=== PATIENT | male | born 1970 | race Two or more races ===

== ENCOUNTER 2017-10-20 19:40 | Emergency (ER) | payer OTHER ==
[~2017-10-20] VITALS: Ht 172.7 cm; Wt 170.1 kg
[2017-10-20 19:47] VITALS: BP 169/98
[2017-10-20] MEDS ORDERED: AMOXICILLIN TRIHYDRATE 250 MG CAPSULE PO ONE (20:30)
[2017-10-20] MEDS ORDERED: IBUPROFEN 600 MG TABLET PO ONE ×2 (20:30→20:33)
[2017-10-20] MEDS ORDERED: AMOXICILLIN TRIHYDRATE 250 MG CAPSULE ONE (20:33)
== END 2017-10-20 20:40 | disposition home or self-care (01) ==
LOC: ER 19:41
DX: K08.89 Other specified disorders of teeth and supporting structures (principal); I10 Essential (primary) hypertension; E11.9 Type 2 diabetes mellitus without complications; E66.01 Morbid (severe) obesity due to excess calories
CPT/HCPCS: 99283; A4606; Z7610

== ENCOUNTER 2018-01-30 01:38 | Emergency (ER) | payer OTHER ==
[~2018-01-30] VITALS: Ht 172.7 cm; Wt 163.3 kg
[2018-01-30 01:45] VITALS: BP 136/102
--- NOTE | 2018-01-30 03:02 | NUR ---
LAB AT BEDSIDE FOR BLOOD DRAW.
[2018-01-30 03:18] LABS: APPEARANCE,URINE TURBID (CLEAR); BILIRUBIN,URINE 1+ (NEGATIVE); BLOOD, URINE 2+ Ery/uL (NEGATIVE); COLOR,URINE ORANGE (YELLOW); KETONES,URINE TRACE (NEGATIVE); LEUKOCYTE ESTERASE ,URINE NEGATIVE (NEGATIVE); NITRITE, URINE POSITIVE (NEGATIVE); PROTEIN,URINE 1+ mg/dl (NEGATIVE); UGLUCOSE NEGATIVE (NEGATIVE)
[2018-01-30 03:25] LABS: CALCIUM, SERUM 8.5 mg/dL (8.5-10.1); POTASSIUM 3.4 mmol/L (3.5-5.1)
[2018-01-30 03:31] LABS: ALBUMIN 3.2 g/dL (3.4-5.0); BILIRUBIN,DIRECT 0.2 mg/dL (0.0-0.2); BILIRUBIN,TOTAL 1.1 mg/dL (0.2-1.0); TOTAL PROTEIN, SERUM 7.9 g/dL (6.4-8.2)
[2018-01-30 03:36] LABS: URINE AMORPHOUS URATE Many /HPF (None Seen)
[2018-01-30 03:38] LABS: BACTERIA,URINE Moderate /HPF (None Seen); RBC,URINE 0-2 /HPF (0-2); SQUAMOUS EPITHELIAL CELL,UR Rare /HPF (None Seen); WBC,URINE 0-2 /HPF (0-3)
[2018-01-30 04:27] LABS: BASOPHILS % (AUTO) 0.3 % (0.0-2.0); EOSINOPHILS % (AUTO) 2.2 % (0.0-6.0); HEMATOCRIT 45 % (39-51); HEMOGLOBIN 14.8 g/dL (13.5-17.5); LYMPHOCYTES # (AUTO) 2.1 /CMM (0.8-4.8); LYMPHOCYTES % (AUTO) 15.8 % (20.0-44.0); MEAN CORPUSCULAR HGB CONC 33 g/dl (31.0-36.0); MEAN CORPUSCULAR VOLUME 87 fL (80-96); MONOCYTES # (AUTO) 0.9 /CMM (0.1-1.30); MONOCYTES % (AUTO) 6.6 % (2.0-12.0); NEUTROPHILS # (AUTO) 10.2 /CMM (1.8-8.9); NEUTROPHILS % (AUTO) 75.1 % (43.0-81.0); PLATELET COUNT (AUTO) 250 /CMM (150-450); RDW COEFFICIENT OF VARIATION 14.2 (11.5-15.0); RED BLOOD CELL COUNT(AUTO) 5.12 MIL/uL (4.5-6.0); WHITE BLOOD COUNT (AUTO) 13.5 K/uL (4.3-11.0)
== END 2018-01-30 04:44 | disposition home or self-care (01) ==
LOC: ER 01:44
DX: N20.0 Calculus of kidney (principal); K80.20 Calculus of gallbladder without cholecystitis without obstruction; I10 Essential (primary) hypertension; E66.01 Morbid (severe) obesity due to excess calories; Z87.440 Personal history of urinary (tract) infections
CPT/HCPCS: 36415; 80048-TC; 80076-TC; 81000-TC; 83690-TC; 85025-TC; 87086-TC; A4606; Z7610